=== PATIENT | female | born 1990 ===

== ENCOUNTER 2019-08-20 02:05 | Emergency (ER) | payer MEDICAID ==
[~2019-08-20] VITALS: Ht 165.1 cm; Wt 63.5 kg
[2019-08-20 02:15] VITALS: BP 113/80
--- NOTE | 2019-08-20 02:15 | NUR ---
ED Nurse Note: Cameron walked into ED c/o right knee abscess onset for 2 days now, states that she was crawling around a tent at home and developed abscess. patient states that she initially popped the abscess and discovered white color pus. denies any fevers, area is firm and warm to touch. will continue to monitor
[2019-08-20] MEDS ORDERED: HYDROcodone/Acetamin 5/325 tab ORAL ONE (02:30)
--- NOTE | 2019-08-20 02:32 | Emergency Room Report ---
History of Present Illness General Chief Complaint: Skin Rash/Abscess Source: Patient Present Illness HPI Disclaimer: Please note that this report is being documented using DRAGON technology. This can lead to erroneous entry secondary to incorrect interpretation by the dictating instrument. HPI: 29-year-old female with past history of staph infection presents for evaluation of infection on the right knee. The patient states she was crawling around her tent after was rated approximately 2 days ago. She sustained a scratch over the lateral aspect of the right patella. Progressively became swollen, tender and began to drain early this morning. She expressed some purulent material. Denied bleeding. Able to bear weight though pain over the wound site. Denies fever or chills. Patient sometimes injects methamphetamine but not in this area. Denies any other sites of infection. LMP was approximately 3 weeks ago. No other complaints at this time. PMH: Staph infection PSH: Reviewed Allergies: Penicillin Social Hx: IV methamphetamine Allergies: Coded Allergies: PENICILLINS (Verified Allergy, Unknown, 08/20/19) COVID-19 Screening Contact w/high risk pt: No Recent Travel to affected area: No Experienced COVID-19 symptoms?: No COVID-19 Testing performed PHOTOGRAPH MOUNTER: No Patient History Last Menstrual Period: 07/29/19 Now: No Nursing Documentation-PMH Past Medical History: No Stated History Review of Systems All Other Systems: negative except mentioned in HPI Physical Exam Vital Signs Date Time Temp Pulse Resp B/P (MAP) Pulse Ox O2 Delivery O2 Flow Rate FiO2 08/20/19 02:09 98.2 106 12 113/80 (91) 100 Room Air General: Awake and alert, no acute distress HEENT: NC/AT. EOMI. Resp: Normal work of breathing MSK: Normal tone and bulk. Moving all extremities. No obvious deformity. Patella in anatomic position. Able to flex and extend the knee. At the 6 o' clock position of the right patella there is a ruptured superficial abscess with serous drainage. Moderate edema and erythema around the wound. No active purulent drainage. No bleeding. Neuro: Awake and alert. Mentating appropriately Medical Decision Making Homeless Attestation Patient has been medically screened and is stable for outpatient follow up Diagnostic Impression: Primary Impression: Cellulitis ER Course 29-year-old female presents for evaluation of infection over the right knee. Exam consistent with a cellulitis and abscess. No other pockets of fluid are identified on exam. Infection appears to be superficial and little concern for deep space infection at this time. She is allergic parasailing will use Bactrim. hCG is negative. Applied topical bacitracin after wound care. The patient will be discharged with 1 week of Bactrim and bacitracin. Instructed to return if edema and redness spread outside the demarcated area. Will refer to nearby primary care clinic. She understands and agrees with this treatment plan. Stable for outpatient follow-up. Laboratory Tests Test 08/20/19 02:29 Urine HCG, Qualitative Negative (NEGATIVE) Last Vital Signs Date Time Temp Pulse Resp B/P (MAP) Pulse Ox O2 Delivery O2 Flow Rate FiO2 08/20/19 02:15 98.2 83 12 113/80 100 Room Air Disposition: HOME, SELF-CARE Condition: Stable Scripts Bacitracin Zinc* (BACITRACIN ZINC*) 1 Each Packet 1 APPLIC TOPIC THREE TIMES A DAY for 5 Days, #20 PACKET Prov: Franco Tom MD 08/20/19 Ibuprofen* (MOTRIN*) 600 Mg Tablet 600 MG ORAL Q6H PRN for For Pain, #30 TAB 0 Refills Prov: Franco Tom MD 08/20/19 Trimethoprim/Sulfamethoxazole 160/800* (BACTRIM DS TABLET*) 1 Each Tablet 1 TAB ORAL Q12H for 7 Days, #14 TAB 0 Refills Prov: Franco Tom MD 08/20/19 Referrals: NOT CHOSEN [facility]/,REFERRING (PCP) Franco Tom MD Aug 20, 2019 02:32
--- NOTE | 2019-08-20 02:33 | NUR ---
ED Nurse Note: redness of the wound measures 3 inch in diameter
[2019-08-20] MEDS ORDERED: IBUPROFEN600 M1 ORAL (02:49)
[2019-08-20] MEDS ORDERED: BACTRIM DS TAB1 EAC1 ORAL (02:49)
[2019-08-20] MEDS ORDERED: BACITRACIN ZIN1 EACH TOPIC (02:51)
[2019-08-20] MEDS ORDERED: Bacitracin Oint UD TOPIC ONE ×2 (02:52→03:00)
--- NOTE | 2019-08-20 02:55 | NUR ---
ER DISCHARGE NOTE: Patient is cleared to be discharged per ERMD, pt is aox4, on room air, with stable vital signs. pt was given dc and prescription instructions. Patient acknowledged discharge instructions. ID band removed. patient has taken all belongings.
[2019-08-20 02:58] VITALS: BP 120/82
[2019-08-20] MEDS ORDERED: Bactrim-DS 1 tab ORAL ONE (03:00)
== END 2019-08-20 02:59 | disposition home or self-care (01) ==
LOC: EMR 02:25
DX: L03.115 Cellulitis of right lower limb (principal); Z88.0 Allergy status to penicillin
CPT/HCPCS: 81025; Z7502; 99283